=== PATIENT | female | born 1975 | race Caucasian/White ===

== ENCOUNTER 2024-07-31 14:38 | Emergency (ER) | payer MEDICARE, OTHER ==
[~2024-07-31] VITALS: Ht 165.1 cm; Wt 90.9 kg
[2024-07-31 15:08] VITALS: TEMP 97.7
[2024-07-31 15:21] LABS: APPEARANCE,URINE CLEAR (CLEAR); BILIRUBIN,URINE NEGATIVE (NEGATIVE); COLOR,URINE LIGHT YELLOW (YELLOW); GLUCOSE, URINE (UA) NEGATIVE (NEGATIVE); KETONES,URINE NEGATIVE (NEGATIVE); LEUKOCYTE ESTERASE ,URINE NEGATIVE (NEGATIVE); NITRATE,URINE NEGATIVE (NEGATIVE); OCCULT BLOOD,URINE NEGATIVE (NEGATIVE); PH,URINE 5.5 (5.0-8.0); PROTEIN,URINE NEGATIVE (NEGATIVE); SPECIFIC GRAVITIY, URINE 1.014 (1.003-1.030); UROBILINOGEN,URINE <=1.0 mg/dL (<=1.0)
[2024-07-31 16:02] LABS: BASOPHILS % (AUTO) 0.7 % (0.0-2.0); EOSINOPHILS % (AUTO) 1.3 % (1.0-6.0); HEMATOCRIT 39.9 % (36-46); HEMOGLOBIN 13.5 g/dL (12.0-16.0); LYMPHOCYTES # (AUTO) 2.4 K/uL (1.0-4.8); MEAN CORPUSCULAR HEMOGLOBIN 29.6 pg (26.0-34.0); MEAN CORPUSCULAR HGB CONC 33.8 G/dL (31.0-37.0); MEAN CORPUSCULAR VOLUME 88 fL (80-100); MONOCYTES # (AUTO) 0.4 K/uL (0.1-1.0); MONOCYTES % (AUTO) 4.7 % (2.0-9.0); NEUTROPHILS # (AUTO) 5.1 K/uL (1.8-7.7); NEUTROPHILS % (AUTO) 63.3 % (40.0-70.0); PLATELET COUNT (AUTO) 186 K/uL (150-450); RED BLOOD CELL COUNT(AUTO) 4.56 MIL/uL (4.00-5.20); RED CELL DISTRIBUTION WIDTH 14.5 % (11.5-14.5)
[2024-07-31 16:08] LABS: ANION GAP 8 mmol/L (8-16); CALCIUM, TOTAL 9.3 mg/dL (8.8-10.5); CARBON DIOXIDE 28 mmol/L (22-29); CHLORIDE 107 mmol/L (98-107); CREATININE 0.68 mg/dL (0.60-1.30); GLOMERULAR FILTR. RATE CALC > 60 mL/min (>60); GLUCOSE,RANDOM 91 mg/dL (70-110); POTASSIUM 3.9 mmol/L (3.5-5.1); SODIUM SERUM 143 mmol/L (136-145); UREA NITROGEN, BLOOD 18 mg/dL (7-18)
[2024-07-31 18:20] VITALS: BP 132/81; PULSE 75; RESP 18; O2SAT 99
== END 2024-07-31 18:21 | disposition home or self-care (01) ==
LOC: EMS 14:38
DX: K92.1 Melena (principal); M19.90 Unspecified osteoarthritis, unspecified site; E11.9 Type 2 diabetes mellitus without complications; K21.9 Gastro-esophageal reflux disease without esophagitis; F12.90 Cannabis use, unspecified, uncomplicated; F17.210 Nicotine dependence, cigarettes, uncomplicated; Z87.11 Personal history of peptic ulcer disease; Z88.0 Allergy status to penicillin; Z88.6 Allergy status to analgesic agent; Z90.710 Acquired absence of both cervix and uterus
CPT/HCPCS: 80048; 81003; 85025; 99283

== ENCOUNTER 2025-02-09 13:43 | Emergency (ER) | payer MEDICARE, OTHER ==
[~2025-02-09] VITALS: Ht 165.1 cm; Wt 91.0 kg
[2025-02-09 14:00] VITALS: TEMP 98.1
[2025-02-09 16:00] VITALS: BP 95/56; PULSE 80; RESP 18; O2SAT 98
[2025-02-09] MEDS: SODIUM CHLORIDE 0.9% 2,000 ML IV ONE (16:37)
[2025-02-09] MEDS: ONDANSETRON HCL 4 MG/2 ML VIAL IVP ONE (16:37)
[2025-02-09] MEDS: DEXAMETHASONE SOD PHOS 4 MG/ML 5 ML VIAL IVP ONE (16:38)
[2025-02-09 17:00] LABS: PLATELET COUNT (AUTO) 187 K/uL (150-450); RED BLOOD CELL COUNT(AUTO) 4.83 MIL/uL (4.00-5.20); RED CELL DISTRIBUTION WIDTH 14.6 % (11.5-14.5); WHITE BLOOD COUNT (AUTO) 7.3 K/uL (4.5-11.0)
[2025-02-09 17:07] LABS: CALCIUM, TOTAL 8.8 mg/dL (8.8-10.5); CREATININE 0.88 mg/dL (0.60-1.30); GLOMERULAR FILTR. RATE CALC > 60 mL/min (>60); GLUCOSE,RANDOM 103 mg/dL (70-110); SODIUM SERUM 142 mmol/L (136-145); UREA NITROGEN, BLOOD 20 mg/dL (7-18)
[2025-02-09] MEDS: MORPHINE SULFATE 10 MG/ML VIAL IVP ONE (17:13)
[2025-02-09] MEDS: VALPROATE SODIUM 500 MG in DEXTROSE 5%-WATER 50 ML IV ONE (17:13)
[2025-02-09] MEDS ORDERED: ONDA-104 PO (19:05)
[2025-02-09] MEDS ORDERED: HYDR-4062 PO (19:05)
== END 2025-02-09 19:23 | disposition home or self-care (01) ==
LOC: EMS 13:43
DX: G43.909 Migraine, unspecified, not intractable, without status migrainosus (principal); E11.9 Type 2 diabetes mellitus without complications; F12.90 Cannabis use, unspecified, uncomplicated; M19.90 Unspecified osteoarthritis, unspecified site; M79.7 Fibromyalgia; F17.210 Nicotine dependence, cigarettes, uncomplicated; Z88.0 Allergy status to penicillin; Z88.6 Allergy status to analgesic agent; Z90.710 Acquired absence of both cervix and uterus; Z91.018 Allergy to other foods
CPT/HCPCS: 99284; 96365; 96375; 80048; 85025; 36415; J1100; J2270; J2405; J3490; J7060; J7030

== ENCOUNTER 2025-05-17 12:50 | Emergency (ER) | payer MEDICARE, OTHER ==
[~2025-05-17] VITALS: Ht 170.2 cm; Wt 127.3 kg
[~2025-05-17 12:50] MED LIST: HYDR-4062 PO; ONDA-104 PO
[2025-05-17 12:52] VITALS: TEMP 98.6
[2025-05-17] MEDS ORDERED: RIZA10TA42 PO (12:58)
[2025-05-17 14:22] LABS: CALCIUM, TOTAL 9.2 mg/dL (8.8-10.5); CREATININE 0.64 mg/dL (0.60-1.30); GLOMERULAR FILTR. RATE CALC > 60 mL/min (>60); GLUCOSE,RANDOM 113 mg/dL (70-110); SODIUM SERUM 142 mmol/L (136-145); UREA NITROGEN, BLOOD 22 mg/dL (7-18)
[2025-05-17] MEDS: SODIUM CHLORIDE 0.9% 1,000 ML IV ONE (14:23)
[2025-05-17 14:24] LABS: PLATELET COUNT (AUTO) 215 K/uL (150-450); RED BLOOD CELL COUNT(AUTO) 5.06 MIL/uL (4.00-5.20); RED CELL DISTRIBUTION WIDTH 14.3 % (11.5-14.5); WHITE BLOOD COUNT (AUTO) 7.2 K/uL (4.5-11.0)
[2025-05-17] MEDS: METOCLOPRAMIDE HCL 5 MG/ML 2 ML VIAL IVP ONE (14:24)
[2025-05-17] MEDS: FAMOTIDINE 20 MG/2 ML VIAL IVP ONE (14:24)
[2025-05-17] MEDS: MORPHINE SULFATE 2 MG/ML SYRINGE IVP ONE (14:24)
[2025-05-17] MEDS: ONDANSETRON HCL 4 MG/2 ML VIAL IVP ONE (14:24)
[2025-05-17] MEDS ORDERED: ONDA-104 PO (14:52)
[2025-05-17] MEDS ORDERED: ACET-3385 PO (14:52)
[2025-05-17 15:04] VITALS: BP 111/67; PULSE 63; RESP 16; O2SAT 99
== END 2025-05-17 15:27 | disposition home or self-care (01) ==
LOC: EMS 12:50
DX: G43.909 Migraine, unspecified, not intractable, without status migrainosus (principal); F12.90 Cannabis use, unspecified, uncomplicated; F17.210 Nicotine dependence, cigarettes, uncomplicated; M19.90 Unspecified osteoarthritis, unspecified site; M79.7 Fibromyalgia; L56.8 Other specified acute skin changes due to ultraviolet radiation; R11.2 Nausea with vomiting, unspecified; Z88.6 Allergy status to analgesic agent; Z90.710 Acquired absence of both cervix and uterus; Z88.0 Allergy status to penicillin; Z91.018 Allergy to other foods; Z79.899 Other long term (current) drug therapy; Z98.890 Other specified postprocedural states
CPT/HCPCS: 99284; 96374; 96375; 96361; 80048; 84703; 85025; 36415; J1200; J3490; J2765; J2270; J2405; J7030